=== PATIENT | female | born 2005 | race Caucasian/White ===

== ENCOUNTER 2024-11-17 11:26 | Outpatient (AMB) | payer BC, SELFPAY ==
--- NOTE | 2024-11-17 11:28 | MHC.PC.OV ---
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 Note: New patient visit Supervisor Metal Furniture Assembly Required: No Allergies No Known Allergies Allergy (Verified 11/17/24 11:43) Medication List - Last Reviewed 11/17/24 by Krystle Zuniga CMA norgestrel-ethinyl estradiol 0.3-30 mg-mcg ([place]illyselle (28)) 1 tab PO DAILY Tobacco use date assessed: 11/17/24 Dental Screening Dental Screen Date: 11/17/24 Did you have a dental visit in the last 12 months?: Yes Did you have a dental problem in the last 6 months where you did not have access to dental care?: No Was dental information given to patient?: Patient has dentist HPI HPI Comments History of Present Illness Details 19 y/o F DOUG, Surgery: None Social: chemical treatment operator (2026, [place]), 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 Familyhx: Dad w/ HTN and DM; Mom alive; Sister healthy. Specialist: Counselor JAIL GUARD History of Present Illness - The patient is a 19-year-old female presenting for establishing care & for CPE - No previous medical records; coming from [facility] - Positive screening for anxiety and depression. - Reports generalized anxiety in social situations. - Previously engaged in therapy, not currently in treatment. - Has never been on medication for mental health. - No prior medication history. - No self-harm ideation reported. Denies HI. Past Surgical History - No surgical procedures reported. Family History - Father with hypertension; otherwise, family members are healthy. - Mother is alive and healthy. - One sibling reported as healthy. 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 - Security in current relationships and reports feeling safe. - Sexually active with men, uses contraceptives prescribed by a honeycomb decapper. Health Maintenance - Discussion regarding upcoming cervical cancer screening (Pap smear) at age 20. - Use of Cryselle for contraception, plans for prescription management discussed. - Uncertain about the status of recent tetanus vaccination, with no confirmed date. Review of Systems - Psychiatric: Reports anxiety in social situations; denies self-harm or harm to others. - Musculoskeletal: Denies pain or swelling in extremities. - Genitourinary: Sexually active, denies concerns for STDs. - Dermatologic: Denies skin problems. - Gastrointestinal: Regular bowel and urinary habits reported. - Reproductive: Uses control for contraception. Physical Exam General: Well developed, well nourished, in no acute distress. Appears stated age. Head: Normocephalic, atraumatic. Eyes: Pupils are equal, round and reactive to light and accommodation. Conjunctivae are clear. Vision grossly normal. Ears: TMs clear AU, EACS WNL Nose: Patent, without discharge. Neck: Supple, no adenopathy or thyromegaly. Breast: Edu on SBE. Patient forgets to perform self-exams. Lungs: Clear to auscultation bilaterally. No rales, rhonchi or wheeze noted. Good air flow in all díaz. Heart: Regular rate and rhythm. No murmurs, click, rubs or gallops are noted. Abdomen: Bowel sounds present in all quadrants. The abdomen is soft, nontender, with no masses or organomegaly noted. No hernias are noted. : Deferred. Reviewed recommendations for routine JAIL GUARD. Pulses: Peripheral pulses are equal and palpable bilaterally. Extremities: No clubbing, cyanosis nor edema is noted. Neurologic: Gait and station normal. Cranial Nerves 2-12 intact. Motor strength grossly symmetrical and intact. No sensory loss. Balance normal. Skin: No rashes, ulcers, or lesions noted. Turgor is good. Skin color is good. Hair and nails are without abnormalities. Psych: Normal eye contact, affect and mood appropriate, and normal interactions. Patient is alert and appropriate to context. Results NA Discussion Notes During the consultation, we discussed the patient's screening results for anxiety and depression and addressed her current mental health status. I proposed the initiation of counseling services, and a referral was arranged. We discussed the possibility of medication if counseling alone is ineffective in future follow-ups. The patient agreed to this approach and received insights on self-breast examination. We discussed the importance of health maintenance, notably her upcoming Pap smear upon reaching age 20. I addressed her contraceptive use, ensuring regular supply to prevent disruption. Instructions to utilize the patient portal for ongoing communication were provided, and a follow-up was planned for her school break. There was an informative discussion on the importance of keeping on top of preventive care and available virtual visits options. Patient was given time to ask questions. All questions were answered to their satisfaction. Assessment and Plan 1. Anxiety Disorder - Counseling referral; possible future medication 2. Depression - Counseling referral; monitor need for medication 3. Contraceptive use - Manage prescription continuity RTO MAR/APR WHEN ON SCHOOL BREAK TO ON ANXIETY, SOONER PRN Patient Instructions - Expect contact from the counseling services for scheduling. - Stay proactive with self-breast exams post-menstrual cycle. - Follow up for Pap smear after turning 20. - Use the patient portal for communication and updates. - Virtual consultations available if necessary during school. Consent Patient was informed and verbally consented to the use of an ambient scribe for clinic note documentation during this visit. An additional 20 minutes was spent addressing the problem(s) noted at todays visit. This includes time spent before the visit reviewing the chart, time spent during the visit, and time spent after the visit on documentation reviewing laboratory results, diagnostic imaging, medications, performing a medically necessary evaluation, counseling on diagnoses, care coordination, ordering appropriate tests, ordering appropriate medications, review of tests performed by other providers, reporting test results with the patient, communication with other healthcare providers. [facility] Surgical History (Updated 11/17/24 @ 11:13 by Krystle Zuniga CMA) No pertinent past surgical history Family History (Updated 11/17/24 @ 11:15 by Krystle Zuniga CMA) Maternal Grandmother Schizoaffective disorder Father HTN (hypertension) Hyperlipidemia Heart attack Other FH: mental illness Social History Housing: House Housing Other:: soon to be living in apartment Patient Tobacco Use Status: Never used Tobacco e-Cigarette/Vaping Use: Never Used Second Hand Smoke Exposure: No service: No Current occupational status: employed Current occupation: [employer] Current occupational exposures/hazards: No Cognitive needs: No Hearing needs: No Vision needs: No Questionnaire PHQ-9 Over the last 2 weeks, how often have you been bothered by any of the following problems? 1. Little interest or pleasure in doing things: several days 2. Feeling down, depressed, or hopeless: several days 3. Trouble falling or staying asleep, or sleeping too much: not at all 4. Feeling tired or having little energy: not at all 5. Poor appetite or overeating: not at all 6. Feeling bad about yourself - or that you are a failure or have let yourself or your family down: more than half the days 7. Trouble concentrating on things, such as reading the newspaper or watching television: not at all 8. Moving or speaking so slowly that other people could have noticed. Or the opposite - being so fidgety or restless that you have been moving around a lot more than usual: several days 9. Thoughts that you would be better off or of hurting yourself in some way: not at all Total score: 5 Depression Screening Interpretation: Positive Depression Screening Follow-up: Existing condition and Community Mental Health Worker F/U Depression Screening Done: Yes 41398 - PHQ-9 Billing: Yes Source: Developed by Drs. Fabien Henderson, Jenifer Marie, Feliz Anne and colleagues, with an educational genaro from [employer]. Thrive Questionnaire Date Thrive assessed: 11/13/24 I am a: Patient What is your living situation today?: I have a steady place to live Within the past 12 months, did the food you bought not last and you didn't have the money to get more?: Never true Within the past 12 months, did you worry whether your food would run out before you got money to buy more?: Never true Do you have trouble paying for medicines?: No Do you have trouble getting transportation to medical appointments?: No Do you have trouble paying your heating and electricity bill?: No Do you have trouble taking care of your child, family member or friend?: No Do you have trouble with day-to-day activities such as bathing, preparing meals, shopping, managing finances, etc.?: No Are you currently unemployed and looking for a job?: No Are you interested in more education?: No Please select the resources that you would like help with: None Currently or been in a relationship where the following occur: No concerns reported THRIVE Score: 0 AUDIT C Alcohol Use Questionnaire (AUDIT-C) 1. How often do you have a drink containing alcohol?: Never 3. How often do you have six or more drinks on one occasion?: Never Total Score: 0 Score Reviewed/Action Taken: Yes DOUG-7 AMB Questionnaire DOUG-7 Date DOUG - 7 assessed: 11/17/24 Feeling nervous, anxious, or on edge: 2 = More than half the days Not being able to stop or control worryin = Several days Worrying too much about different things: 1 = Several days Trouble relaxin = Several days Being so restless that it is hard to sit still: 1 = Several days Becoming easily annoyed or irritable: 0 = Not at all Feeling afraid as if something awful might happen: 1 = Several days Total DOUG-7 score (0-4 normal; 5-9 mild; 10-14 moderate; 15-21 severe): 7 Source: Developed by Drs. Fabien Henderson, Jenifer Marie, Feliz Anne and colleagues, with an educational genaro from [employer]. DOUG-7 Assessment Billing DOUG-7 Assessment Tool: DOUG-7 Assessment 27234 Physical exam (Primary Care) Vital Signs: Last Vital Signs Temp 97.8 F 11/17/24 11:35 Pulse 76 11/17/24 11:35 Resp 12 11/17/24 11:35 BP 108/62 11/17/24 11:35 Pulse Ox 99 11/17/24 11:35 Oxygen Delivery Method Room Air 11/17/24 11:35 BMI result Body Mass Index 20.9 Tobacco/Smoking Status: Tobacco use Status Tobacco use date assessed 11/17/24 11/17/24 11:39 Patient Tobacco Use Status Never used Tobacco 11/17/24 11:39 e-Cigarette/Vaping Use Never Used 11/17/24 11:39 PHQ-9: PHQ-9 Score PHQ-9: Total score 5 11/17/24 11:46 Depression Screening Interpretation: Positive Depression Screening Follow-up: Existing condition and Community Mental Health Worker F/U Thrive Assessment: Date of Thrive Assessment Date Thrive assessed 11/13/24 11/17/24 11:30 Currently or been in a relationship where the following occur: No concerns reported Coding Level of Care Code New Pt Level 2 (61198) New Pt Prev Care 18-39yr(31708 Diagnoses Encounter to establish care with new provider Z76.89 Uses oral contraception Z30.41 DOUG (generalized anxiety disorder) F41.1 Encounter for general adult medical examination without abnormal findings Z00.00 Additional Codes DOUG-7 Assessment Billing - DOUG-7 Assessment Tool: DOUG-7 Assessment 75670 ([id number]) PHQ-9 - 98120 - PHQ-9 Billing: Yes ([id number]) Assessment & Plan Assessment & Plan (1) Encounter to establish care with new provider: Code(s): Z76.89 - Persons encountering health services in other specified circumstances (2) Uses oral contraception: Code(s): Z30.41 - Encounter for surveillance of contraceptive pills Category: Medical (3) DOUG (generalized anxiety disorder): Code(s): F41.1 - Generalized anxiety disorder Category: Medical (4) Encounter for general adult medical examination without abnormal findings: Onset Date: ~11/17/24 Code(s): Z00.00 - Encounter for general adult medical examination without abnormal findings Category: Medical Plan . Orders: Referrals Nurse Navigator Referral F41.1 - Generalized anxiety disorder TABLEAU ADMINISTRATOR Referral Z12.4 - Encounter for screening for malignant neoplasm of cervix, Z30.41 - Encounter for surveillance of contraceptive pills Medications: New norgestrel-ethinyl estradiol 0.3-30 mg-mcg (Rosa (28)) 1 tab PO DAILY 168 tabs 2RF Patient Instructions: Walk-In Care (Urgent Care): We Make it Easy Walk-in for urgent medical issues such as: ? Seasonal Allergies ? Insect Bites ? Cough ? Diarrhea ? Acute Asthma Attacks ? Back, Knee or Joint Pain ? Ear Infection ? Fever without a Rash ? Headaches ? Nausea ? [place] Eye, Rash or Skin Irritation ? Sore Throat ? Sports Physicals ? Vomiting Most insurances are accepted. Patients do not need to be part of the [facility] to seek care at the walk-in clinic. Locations [facility] , [place] [address] ? [phone] [facility] Walk-In Care in [place] provides services to ages 18 and over. Open Saturday-Saturday: 8 a.m. to 5 p.m. and Saturday: 9 a.m. to 3 p.m.* *Hours may vary due to staffing availability. To confirm Walk-In Care hours in [place], please call [phone]. [address] [place] [address] ? [phone] [facility] Walk-In Care in [place] provides services to ages 12 and over. Open Saturday-Saturday: 8 a.m. to 5 p.m. Hours may vary due to staffing availability. To confirm Walk-In Care hours in [place], please call [phone]. LABORATORY SERVICES: [facility] Lab ? Primary Location [address] [place] [address] Saturday through Saturday 6:00 AM ? 5:00 PM Saturday 7:00 AM ? 11:00 AM* [phone] The [facility] Lab is centrally located near the front entrance of the [facility] for easy outpatient access. Convenient parking is provided for outpatients. *Hours may vary due to staffing availability. To confirm Laboratory hours for any location, please call [phone]. Offsite Location For your convenience, we offer offsite laboratory draw stations at the following locations: [facility] ? [facility] [address], [address] Saturday through Saturday 7:30 AM ? 1:00 PM* [phone] *Hours may vary due to staffing availability. To confirm Laboratory hours for any location, please call [phone]. [place] ? [address] Saturday through Saturday 6:00 AM ? 3:30 PM* Saturday 6:30 AM ? 3 PM* [phone] *Hours may vary due to staffing availability. To confirm Laboratory hours for any location, please call [phone] [place] [address] Saturday through Saturday 7:30 AM ? 4:00 PM* [phone] *Hours may vary due to staffing availability. To confirm Laboratory hours for any location, please call [phone] [place] [address] Saturday through 9:00 AM ? 4:00 PM* *Hours may vary due to staffing availability. To confirm Laboratory hours for any location, please call [phone]. Appointments are not necessary. Walk-ins are welcome. Like all the departments throughout the [facility], our Lab undergoes frequent reviews to ensure the quality and accuracy of test results, and our staff takes special pride in its status as a nationally accredited facility. Patient Portal: ONE PATIENT. ONE RECORD. BETTER CARE. [facility] has a fully integrated, cutting-edge mobile electronic health information system that has revolutionized the way we care for our patients and manage our organization. This system improves communication and coordination enabling us to provide safe, higher-quality care, and an overall positive experience for staff and patients. Our first priority, as always, is to deliver the highest quality care possible. The system is running in the background supporting that priority. This portal is for all [facility] services and practices. If you are experiencing any technical difficulties with enrolling or logging into the Patient Portal please complete the [facility] Patient Portal Technical Support Form. [facility] now offers a new secure on-line interactive tool for patients to review their health information ? ?Patient Portal. This interactive web portal will enable patients and their families to take an active role in their care by providing easy, secure access to their health information via the internet. The Patient Portal provides patients with instant access to their health information, including laboratory results, medications, allergies, demographic information, visit history, and more. In addition to managing their own care, parents and health care proxies with authorized consent will appreciate the ability to access the records of those individuals for whom they provide care. Please note: if you wish to gain access (Proxy) to another patient?s portal, you will be required to come to the Medical Records Department in person at [facility]. Both the patient giving proxy access and the proxy will need to provide photo identification and complete the appropriate authorization. The Patient Portal also allows track their appointments online. HEALTH SCREENINGS FOR WOMEN YOU SHOULD VISIT YOUR HEALTH CARE PROVIDER FROM TIME TO TIME, EVEN IF YOU ARE HEALTHY. THE PURPOSE OF THESE VISITS IS TO: SCREEN FOR MEDICAL ISSUES ASSESS YOUR RISK FOR FUTURE MEDICAL PROBLEMS ENCOURAGE A HEALTHY LIFESTYLE UPDATE VACCINATIONS AND OTHER PREVENTIVE CARE SERVICES HELP YOU GET TO KNOW YOUR PROVIDER IN CASE OF AN ILLNESS INFORMATION EVEN IF YOU FEEL FINE, YOU SHOULD STILL SEE YOUR PROVIDER FOR REGULAR CHECKUPS. THESE VISITS CAN HELP YOU AVOID PROBLEMS IN THE FUTURE. FOR EXAMPLE, THE ONLY WAY TO FIND OUT IF YOU HAVE HIGH BLOOD PRESSURE IS TO HAVE IT CHECKED REGULARLY. HIGH BLOOD SUGAR AND HIGH CHOLESTEROL LEVELS ALSO MAY NOT HAVE ANY SYMPTOMS IN THE EARLY STAGES. A SIMPLE BLOOD TEST CAN CHECK FOR THESE CONDITIONS. THERE ARE SPECIFIC TIMES WHEN YOU SHOULD SEE YOUR PROVIDER OR RECEIVE SPECIFIC HEALTH SCREENINGS. THE US PREVENTIVE SERVICES [employer] PUBLISHES A LIST OF RECOMMENDED SCREENINGS. BELOW ARE SCREENING GUIDELINES FOR WOMEN AGES 18 TO 39. BLOOD PRESSURE SCREENING YOUR BLOOD PRESSURE SHOULD BE CHECKED AT LEAST ONCE EVERY 3 TO 5 YEARS IF: YOUR BLOOD PRESSURE IS IN THE NORMAL RANGE (TOP NUMBER LESS THAN 120 MM HG AND BOTTOM NUMBER LESS THAN 80 MM HG) YOU DON'T HAVE RISK FACTORS FOR HIGH BLOOD PRESSURE ASK YOUR PROVIDER IF YOU NEED YOUR BLOOD PRESSURE CHECKED MORE OFTEN IF: THE TOP NUMBER IS 120 TO 129 MM HG OR THE BOTTOM NUMBER IS 70 TO 79 MM HG YOU HAVE DIABETES, HEART DISEASE, KIDNEY PROBLEMS, ARE OVERWEIGHT, OR HAVE CERTAIN OTHER HEALTH CONDITIONS YOU HAVE A FIRST-DEGREE RELATIVE WITH HIGH BLOOD PRESSURE YOU ARE BLACK YOU HAD HIGH BLOOD PRESSURE DURING A IF THE TOP NUMBER IS 130 MM HG OR GREATER OR THE BOTTOM NUMBER IS 80 MM HG OR GREATER, THIS IS CONSIDERED STAGE 1 HYPERTENSION. SCHEDULE AN APPOINTMENT WITH YOUR PROVIDER TO LEARN HOW YOU CAN REDUCE YOUR BLOOD PRESSURE. WATCH FOR BLOOD PRESSURE SCREENINGS IN YOUR AREA. ASK YOUR PROVIDER IF YOU CAN STOP IN TO HAVE YOUR BLOOD PRESSURE CHECKED. BREAST CANCER SCREENING EXPERTS DO NOT AGREE ABOUT THE BENEFITS OF BREAST SELF-EXAMS IN FINDING BREAST CANCER OR SAVING LIVES. TALK TO YOUR PROVIDER ABOUT WHAT IS BEST FOR YOU. A SCREENING MAMMOGRAM IS NOT RECOMMENDED FOR MOST WOMEN UNDER AGE 40. YOUR PROVIDER MAY DISCUSS AND RECOMMEND MAMMOGRAMS, MRI SCANS, OR ULTRASOUNDS IF YOU HAVE AN INCREASED RISK FOR BREAST CANCER, SUCH : A MOTHER OR SISTER WHO HAD BREAST CANCER AT A YOUNG AGE (MOST OFTEN STARTING SCREENING EARLIER THAN THE AGE THE CLOSE RELATIVE WAS DIAGNOSED) YOU CARRY A HIGH-RISK GENETIC MARKER CERVICAL CANCER SCREENING CERVICAL CANCER SCREENING SHOULD START AT AGE 21 YEARS UNLESS YOUR PROVIDER ADVISES OTHERWISE. AFTER THE FIRST TEST: WOMEN AGES 21 THROUGH 29 SHOULD HAVE A PAP TEST EVERY 3 YEARS. EXOPRTS DO NOT AGREE ON WHETHER HPV TESTING IS RECOMMENDED FOR THIS AGE GROUP. WOMEN AGES 30 THROUGH 65 SHOULD BE SCREENED WITH EITHER A PAP TEST EVERY 3 YEARS OR THE HPV TEST EVERY 5 YEARS OR BOTH TESTS EVERY 5 YEARS (CALLED COTESTING ). WOMEN WHO HAVE BEEN TREATED FOR PRECANCER (CERVICAL DYSPLASIA) SHOULD CONTINUE TO HAVE PAP TESTS FOR 20 YEARS AFTER TREATMENT OR UNTIL AGE 65, WHICHEVER IS LONGER. IF YOU HAVE HAD YOUR UTERUS AND CERVIX REMOVED (TOTAL HYSTERECTOMY), AND YOU HAVE NOT BEEN DIAGNOSED WITH CERVICAL CANCER OR PRECANCER (HIGH GRADE CERVICAL NEOPLASIA), YOU DO NOT NEED CERVICAL CANCER SCREENING. CHOLESTEROL SCREENING CHOLESTEROL SCREENING SHOULD BEGIN AT: AGE 45 FOR WOMEN WITH NO KNOWN RISK FACTORS FOR CORONARY HEART DISEASE AGE 20 FOR WOMEN WITH KNOWN RISK FACTORS FOR CORONARY HEART DISEASE REPEAT CHOLESTEROL SCREENING SHOULD TAKE PLACE: EVERY 5 YEARS FOR WOMEN WITH NORMAL CHOLESTEROL LEVELS MORE OFTEN IF CHANGES OCCUR IN LIFESTYLE (INCLUDING WEIGHT GAIN AND DIET) MORE OFTEN IF YOU HAVE DIABETES, HEART DISEASE, KIDNEY PROBLEMS, OR CERTAIN OTHER CONDITIONS DIABETES SCREENING YOU SHOULD BE SCREENED FOR DIABETES STARTING AT AGE 35 AND THEN REPEATED EVERY 3 YEARS IF YOU HAVE NO RISK FACTORS FOR DIABETES. SCREENING MAY NEED TO START EARLIER AND BE REPEATED MORE OFTEN IF YOU HAVE OTHER RISK FACTORS FOR DIABETES, SUCH : YOU HAVE A FIRST DEGREE RELATIVE WITH DIABETES. YOU ARE OVERWEIGHT OR HAVE OBESITY. YOU HAVE HIGH BLOOD PRESSURE, PREDIABETES, OR A HISTORY OF HEART DISEASE. SCREENING FOR DIABETES SHOULD BE DONE IF YOU ARE PLANNING TO BECOME AND YOU ARE OVERWEIGHT AND HAVE OTHER RISK FACTORS SUCH HIGH BLOOD PRESSURE. DENTAL EXAM GO TO THE DENTIST ONCE OR TWICE EVERY YEAR FOR AN EXAM AND CLEANING. YOUR DENTIST WILL EVALUATE IF YOU NEED MORE FREQUENT VISITS. EYE EXAM HAVE AN EYE EXAM EVERY 5 TO 10 YEARS BEFORE AGE 40. IF YOU HAVE VISION PROBLEMS, HAVE AN EYE EXAM EVERY 2 YEARS OR MORE OFTEN IF RECOMMENDED BY YOUR PROVIDER. YOU SHOULD HAVE AN EYE EXAM THAT INCLUDES AN EXAMINATION OF YOUR RETINA (BACK OF YOUR EYE) AT LEAST EVERY YEAR IF YOU HAVE DIABETES. IMMUNIZATIONS COMMONLY NEEDED VACCINES INCLUDE: FLU SHOT: GET ONE EVERY YEAR. COVID-19 VACCINE: ASK YOUR PROVIDER WHAT IS BEST FOR YOU. TETANUS-DIPHTHERIA AND ACELLULAR PERTUSSIS (TDAP) VACCINE: HAVE ONE AT OR AFTER AGE 19 ONE OF YOUR TETANUS-DIPHTHERIA VACCINES IF YOU DID NOT RECEIVE IT AN ADOLESCENT. TETANUS-DIPHTHERIA: HAVE A BOOSTER (OR TDAP) EVERY 10 YEARS. VARICELLA VACCINE: RECEIVE 2 DOSES IF YOU NEVER HAD CHICKENPOX OR THE VARICELLA VACCINE. HEPATITIS B VACCINE: RECEIVE 2, 3, OR 4 DOSES, DEPENDING ON YOUR EXACT CIRCUMSTANCES. MEASLES, MUMPS, AND RUBELLA (MMR) VACCINE: RECEIVE 1 TO 2 DOSES IF YOU ARE NOT ALREADY IMMUNE TO MMR. YOUR PROVIDER CAN TELL YOU IF YOU ARE IMMUNE. ASK YOUR PROVIDER ABOUT THE HUMAN PAPILLOMAVIRUS (HPV) VACCINE IF: YOU HAVE NOT RECEIVED THE HPV VACCINE IN THE PAST YOU HAVE NOT COMPLETED THE FULL VACCINE SERIES (YOU SHOULD CATCH UP ON THIS SHOT) ASK YOUR PROVIDER IF YOU SHOULD RECEIVE OTHER IMMUNIZATIONS IF YOU HAVE CERTAIN HEALTH PROBLEMS THAT INCREASE YOUR RISK FOR SOME DISEASES SUCH PNEUMONIA. INFECTIOUS DISEASE SCREENING WOMEN WHO ARE SEXUALLY ACTIVE SHOULD BE SCREENED FOR CHLAMYDIA AND GONORRHEA UP UNTIL AGE 25. WOMEN 25 YEARS AND OLDER SHOULD BE SCREENED FOR CHLAMYDIA AND GONORRHEA IF AT HIGH RISK. SCREENING FOR HEPATITIS C: ALL ADULTS AGES 18 TO 79 SHOULD GET A ONE-TIME TEST FOR HEPATITIS C. PEOPLE SHOULD BE SCREENED AT EVERY . SCREENING FOR HUMAN IMMUNODEFICIENCY VIRUS (HIV): ALL PEOPLE AGES 15 TO 65 SHOULD GET A ONE-TIME TEST FOR HIV. DEPENDING ON YOUR LIFESTYLE AND MEDICAL HISTORY, YOU MAY ALSO NEED TO BE SCREENED FOR INFECTIONS SUCH SYPHILIS AND HIV, WELL OTHER INFECTIONS. PHYSICAL EXAM ALL ADULTS SHOULD VISIT THEIR PROVIDER FROM TIME TO TIME, EVEN IF THEY ARE HEALTHY. THE PURPOSE OF THESE VISITS IS TO: SCREEN FOR DISEASE ASSESS YOUR RISK OF FUTURE MEDICAL PROBLEMS ENCOURAGE A HEALTHY LIFESTYLE UPDATE YOUR VACCINATIONS AND OTHER PREVENTIVE CARE SERVICES MAINTAIN A RELATIONSHIP WITH A PROVIDER IN CASE OF AN ILLNESS YOUR HEIGHT, WEIGHT, AND BMI SHOULD BE CHECKED AT EVERY EXAM. DURING YOUR EXAM, YOUR PROVIDER MAY ASK YOU ABOUT: DEPRESSION AND ANXIETY DIET AND EXERCISE ALCOHOL AND TOBACCO USE SAFETY ISSUES, SUCH USING SEAT BELTS, SMOKE DETECTORS, AND INTIMATE PARTNER VIOLENCE YOUR MEDICINES AND RISK FOR INTERACTIONS SKIN SELF-EXAM YOUR PROVIDER MAY CHECK YOUR SKIN FOR SIGNS OF SKIN CANCER, ESPECIALLY IF YOU'RE AT HIGH RISK, SUCH IF YOU: HAVE HAD SKIN CANCER BEFORE HAVE CLOSE RELATIVES WITH SKIN CANCER HAVE A WEAKENED IMMUNE SYSTEM OTHER SCREENING TALK WITH YOUR PROVIDER ABOUT COLON CANCER SCREENING IF YOU HAVE A STRONG FAMILY HISTORY OF COLON CANCER OR POLYPS, OR IF YOU HAVE HAD INFLAMMATORY BOWEL DISEASE OR POLYPS YOURSELF. ROUTINE BONE DENSITY SCREENING OF WOMEN UNDER 40 IS NOT RECOMMENDED. [facility] SUICIDE AND CRISIS LIFELINE: AVAILABLE 24 HOURS A DAY, 7 DAYS A WEEK, 365 DAYS A YEAR DIAL 188 WITH ANY TELEPHONE TO SPEAK TO SOMEONE IMMEDIATELY [facility] [address] [place], [place] [id number] , WALK INS [facility] (MENTAL / BEHAVIORAL HEALTH THERAPIST: [address] [place], [place] [phone] [facility] AT [facility]: [address] [place], [place] [phone] OPEN FROM 10AM - 12PM (WALK INS [facility]) [facility] CRISIS SERVICES: [address] [place] [address] WALK IN HOURS FROM 10AM - 12PM BEHAVIORAL HEALTH NETWORK: [address] [place] [address] [place] [id number] SATURDAY THROUGH SATURDAY 8AM - 8PM SATURDAY AND SATURDAY 9AM - 5PM CRISIS HOTLINES SUICIDE PREVENTION, DOMESTIC VIOLENCE, AND OTHER CRISIS HOTLINES FOR YOUTH, YOUNG ADULTS, AND THEIR FRIENDS AND FAMILIES. [facility] SAFELINE: THE [facility] SAFELINE HELPS YOUTH WHO HAVE RUN AWAY, ARE THINKING ABOUT RUNNING AWAY, OR WHO ALREADY RAN AWAY BUT ARE READY TO COME HOME. PARENTS AND GUARDIANS CAN ALSO CONTACT THE HOTLINE IF THEY ARE WORRIED ABOUT THEIR CHILD RUNNING AWAY OR IF THEIR CHILD HAS ALREADY LEFT HOME. THE HOTLINE IS AVAILABLE 24 HOURS A DAY, SEVEN DAYS A WEEK. YOUTH, PARENTS, AND GUARDIANS CAN ALSO USE THE ONLINE CHAT FEATURE ON THE [employer] SAFELINE'S WEBSITE TO ASK FOR HELP AND GET SUPPORT, [place] [phone]. [facility] NATIONAL SUICIDE PREVENTION LIFELINE: THE NATIONAL SUICIDE PREVENTION LIFELINE IS A NETWORK OF LOCAL CRISIS CENTERS THAT ARE AVAILABLE 22/10 TO PROVIDE SUPPORT FOR YOUTH AND ADULTS WHO ARE IN ANY KIND OF EMOTIONAL CRISIS. IN ADDITION TO THE MAIN HOTLINE NUMBER LISTED ABOVE, THERE ARE SEVERAL OTHER NUMBERS TO CALL DEPENDING ON YOUR NEEDS: EGYPTIAN LANGUAGE: DEAF AND HARD OF [phone] VETERANS: DISASTER DISTRESS: ANYONE CAN ALSO USE THEIR ONLINE CHAT FEATURE ON THEIR WEBSITE. [facility] SUICIDE PREVENTION LIFELINE [facility] HELPLINE: THE [facility] HELPLINE IS AVAILABLE TO ANYONE IN [place] WHO IS NEED OF EMOTIONAL SUPPORT. ANYONE CAN CALL OR TEXT THE HELPLINE TO RECEIVE HELP FROM SPECIALLY TRAINED VOLUNTEERS. [place] HIGH SCHOOL AND COLLEGE STUDENTS CAN ALSO GET ONLINE SUPPORT THROUGH THE IM[employer]_ PROGRAM. FOR HIGH SCHOOL STUDENTS, VOLUNTEERS AGES 15-18 ARE AVAILABLE SATURDAY-SATURDAY FROM 6-9PM. FOR COLLEGE STUDENTS, IMHEAR_ IS AVAILABLE SATURDAY-SATURDAY FROM 5-9PM. THE [employer]IL[employer] PROJECT - THE [employer]JECT IS A 22/10 CRISIS INTERVENTION AND SUICIDE PREVENTION HOTLINE FOR LGBTQ YOUTH. YOUTH CAN ALSO TEXT PHILIPP TO FOR SUPPORT, OR USE THE ONLINE CHAT FEATURE ON THE PHILIP[employer] PROJECT'S WEBSITE. [employer] IS AVAILABLE SATURDAY-SATURDAY BETWEEN 3-10PM. TREVORCHAT IS AVAILABLE SEVEN DAYS A WEEK BETWEEN 3-10PM. SAFELINK: SAFELINK IS FOR ANYONE WHO IS BEING AFFECTED BY DOMESTIC VIOLENCE OR DATING VIOLENCE. VOLUNTEERS AT [employer] SPEAK CHADIAN AND EGYPTIAN, AND [employer] ALSO HAS A SERVICE THAT CAN PROVIDE TRANSLATION IN MORE THAN 130 LANGUAGES. TTY:
[2024-11-17 11:35] VITALS: BP 108/62; PULSE 76; RESP 12; TEMP 36.6; O2SAT 99; BMI 20.9
--- OUTSIDE RECORDS SUMMARY | 2024-11-17 13:01 | XMS_ITS | Encounter Summary ---
Author Organization [facility] Address [address] [place] [phone] Phone Care Team Providers Care Summer Intern Name Role Phone Christi Giron MD Primary Care Provider [phone] Encounter Details Date Type Department Care Team (Late st Contact Info) Description 10/07/2024 Results Follow-Up [facility] [address] [place] [address] Savannah Joel [facility] [address] [place] [address] Social History Tobacco Use Types Packs/Day Years Used Date Smoking Tobacco: Never Smokeless Tobacco: Never Alcohol Use Standard Drinks/Week Comments Never 0 (1 standard drink = 0.6 oz pur e alcohol) Hunger/Food Answer Date Recorded In the last 12 months, did y ou or your family ever eat less than you felt you should because there wasn't enough money for food? No 10/06/2024 Stable Housing Answer Date Recorded Are you worried that in the next 2 months you may not have stable housing? No 10/06/2024 Transportation Concerns Answer Date Rec orded In the last 12 months, have you or your family ever had to go without healthcare because you didn't have a way to get there? No 10/06/2024 Hazards in Home Answer Date Recorded Think about the place you li ve. Do you have problems with any of the following? Pests (mice or roaches), mold, no/not working smoke detectors, water leaks, no window guards. No 2024 Financing Utilities Answer Date Recorde d In the last 12 months, has t he electric, gas, oil, or water company threatened to shut off your services in your home? No 10/06/2024 Safety at Home Answer Date Recorded Are you or your family worried about feeling saf e in your home? No 10/06/2024 Outside Support Answer Date Recorded Do you feel that you need mo re support from other people or programs to help you care for yourself or your family? No 10/06/2024 Understanding Health Concerns Answer Da te Recorded Do you need help understandi ng your or your child's healthcare needs (diagnosis, medications, plan, etc.)? No 10/06/2024 Financing Health Concerns Answer Date R ecorded In the last 12 months, was t here a time when your child needed to see a doctor or get medications or supplies but could not because of cost? No 10/06/2024 Missing School or Work Answer Date Alexandru rded Did you or your child miss s chool or work because of a health problem that could have been avoided? No 10/06/2024 Child Education Answer Date Recorded Do you have concerns about y our/your child's learning or behavior in school, preschool, or daycare? No 10/06/2024 Comments No Sex and Gender Information Value Date Recorded Sex Assigned at Female 09/18/2022 9:38 AM EDT Legal Sex Female 6:28 PM EDT Gender Identity Female 09/18/2022 9:38 AM EDT Sexual Orientation Straight 10/28/2020 10 :43 AM EDT documented as of this encounter Plan of Treatment Not on file documented as of this encounter Visit Diagnoses Not on filedocumented in this encounter Care Teams Summer Intern Relationship Specialty Start Date End Date Christi Giron MD [address] [place] [address] PCP - General Pediatrics 04/30/22 documented as of this encounter
== END 2024-11-17 12:00 | disposition home or self-care (01) ==
LOC: HO.HMCFM 11:27
PROVIDERS: PCP Nurse Practitioner Family; Visit Provider Nurse Practitioner Family
DX: Z00.00 Encounter for general adult medical examination without abnormal findings (principal); F41.1 Generalized anxiety disorder; Z76.89 Persons encountering health services in other specified circumstances; Z30.41 Encounter for surveillance of contraceptive pills

== ENCOUNTER → 2024-11-17 11:26 | Outpatient (BNVA) | payer BC, SELFPAY | PROVIDERS: PCP Nurse Practitioner Family; Visit Provider Nurse Practitioner Family | DX: Z00.00 Encounter for general adult medical examination without abnormal findings (principal); F41.1 Generalized anxiety disorder; F32.A Depression, unspecified; Z76.89 Persons encountering health services in other specified circumstances | CPT/HCPCS: 96127 ==